=== PATIENT | female | born 1970 | race Caucasian/White ===

== ENCOUNTER 2016-05-15 15:45 | Inpatient (IN) | payer MEDICAID ==
[~2016-05-15] VITALS: Ht 167.6 cm; Wt 131.0 kg
[2016-05-15] MEDS ORDERED: DILAUDID 1 MG/ML AMP ONE (18:37)
[2016-05-15] MEDS ORDERED: CEFTRIAXONE 1 GM VIAL ONE (19:34)
[2016-05-15] MEDS ORDERED: Furosemide 40 MG/4 ML VIAL ONE (19:34)
[2016-05-15] MEDS ORDERED: SODIUM CHLORIDE 0.9% 100 ML IV ONE (19:34)
[2016-05-15] MEDS ORDERED: ALU/MAG/SIM 30 ML UDC PO PRN (20:40)
[2016-05-15] MEDS ORDERED: ONDANSETRON 4 MG VIAL IV PRN (20:40)
[2016-05-15] MEDS ORDERED: BISACODYL 10 MG SUPP RECTAL PRN (20:40)
[2016-05-15] MEDS: DUONEB INH SCH ×2 (20:40→23:00)
[2016-05-15] MEDS ORDERED: MAG HYDROX 30 ML UDC PO PRN (20:40)
[2016-05-15] MEDS ORDERED: GLUCAGON 1 MG VIAL IM PRN (20:40)
[2016-05-15] MEDS ORDERED: SALINE FLUSH 10 ML FLUSH PRN (20:40)
[2016-05-15] MEDS ORDERED: BISACODYL EC 5 MG TAB PO PRN (20:40)
[2016-05-15] MEDS ORDERED: GUAIFEN/DM 10 ML UDC PO PRN (20:40)
[2016-05-15] MEDS ORDERED: NICOTINE 21 MG/24 HR TRANSDERM PRN (20:40)
[2016-05-15] MEDS ORDERED: DEXTROSE 50% SYRINGE 50 ML IV PRN (20:40)
[2016-05-15] MEDS ORDERED: Atorvastatin 20 MG TAB PO SCH (21:00)
[2016-05-15 21:55] VITALS: BP_SYST 147; RESP 18; TEMP 99
[2016-05-15 22:17] VITALS: Ht 167.6 cm; Wt 131.0 kg
[2016-05-15] MEDS: ASPIRIN 81 MG CHEW TAB PO SCH (23:06)
[2016-05-15] MEDS: LEVOFLOXACIN 750 MG/150 ML 150 ML IV SCH (23:06)
[2016-05-15] MEDS: amLODIPine 10 MG TAB PO SCH (23:07)
[2016-05-15] MEDS: GABAPENTIN 600 MG TAB PO SCH (23:08)
[2016-05-15] MEDS: Atorvastatin 40 MG TAB PO SCH (23:08)
[2016-05-15] MEDS: FAMOTIDINE 20 MG TAB PO SCH (23:09)
[2016-05-15] MEDS: ENOXAPARIN 30 MG/0.3 ML SYR SUBQ SCH (23:09)
[2016-05-15] MEDS: SALINE FLUSH 10 ML FLUSH SCH (23:11)
[2016-05-15] MEDS: SODIUM CHLORIDE 0.9% FLUSH BAG 500 ML IV SCH (23:11)
[2016-05-15 23:36] VITALS: BP_SYST 176; RESP 18; TEMP 98.2
[2016-05-15] MEDS: LEVEMIR INSULIN SUBQ SCH (23:37)
[2016-05-16] MEDS: DUONEB INH SCH ×6 (02:10→22:26)
[2016-05-16 02:16] VITALS: RESP 18
[2016-05-16 04:00] VITALS: BP_SYST 117; RESP 17; TEMP 98.4
[2016-05-16] MEDS: ACETAMINOPHEN 325 MG TAB PO PRN (07:27)
[2016-05-16 07:48] VITALS: BP_SYST 127; RESP 18; TEMP 98
[2016-05-16] MEDS: ALPRAZOLAM 0.25 MG TAB PO SCH ×3 (08:00→15:52)
[2016-05-16] MEDS: LEVOFLOXACIN 750 MG/150 ML 150 ML IV SCH (08:24)
[2016-05-16] MEDS: ASPIRIN 81 MG CHEW TAB PO SCH (08:25)
[2016-05-16] MEDS: SALINE FLUSH 10 ML FLUSH SCH (08:25)
[2016-05-16] MEDS: ENOXAPARIN 30 MG/0.3 ML SYR SUBQ SCH (08:25)
[2016-05-16] MEDS: amLODIPine 10 MG TAB PO SCH (08:26)
[2016-05-16] MEDS: HCTZ 12.5 MG CAP PO SCH (08:26)
[2016-05-16] MEDS: SITAGLIPTIN 50 MG TAB PO SCH (08:26)
[2016-05-16] MEDS: FAMOTIDINE 20 MG TAB PO SCH ×2 (08:26→21:00)
[2016-05-16] MEDS: FERROUS SULF 325 MG TAB PO SCH (08:26)
[2016-05-16] MEDS ORDERED: MISSING DOSE XX ONE (08:35)
[2016-05-16] MEDS: GABAPENTIN 300 MG CAP PO SCH (09:43)
[2016-05-16 11:28] VITALS: BP_SYST 145; RESP 18; TEMP 97.8
[2016-05-16 15:48] VITALS: BP_SYST 130; RESP 19; TEMP 98.3
[2016-05-16] MEDS: GABAPENTIN 600 MG TAB PO SCH (17:00)
[2016-05-16 19:29] VITALS: BP_SYST 140; RESP 17; TEMP 98.4
[2016-05-17] MEDS: Atorvastatin 40 MG TAB PO SCH (00:43)
[2016-05-17] MEDS: SALINE FLUSH 10 ML FLUSH SCH ×2 (00:44→08:26)
[2016-05-17] MEDS: ACETAMINOPHEN 325 MG TAB PO PRN (00:44)
[2016-05-17 01:00] VITALS: BP_SYST 148; RESP 18; TEMP 98.3
[2016-05-17] MEDS: LEVEMIR INSULIN SUBQ SCH (01:17)
[2016-05-17] MEDS: DUONEB INH SCH ×3 (02:17→10:38)
[2016-05-17 03:23] VITALS: BP_SYST 131; RESP 20; TEMP 98.2
[2016-05-17] MEDS: SODIUM CHLORIDE 0.9% FLUSH BAG 500 ML IV SCH (05:24)
[2016-05-17 07:00] VITALS: BP_SYST 138; BP_SYST 140; RESP 16; RESP 20; TEMP 97.9; TEMP 98.2
[2016-05-17] MEDS ORDERED: MISSING DOSE XX ONE (08:00)
[2016-05-17] MEDS: ALPRAZOLAM 0.25 MG TAB PO SCH ×2 (08:00)
[2016-05-17] MEDS: GABAPENTIN 300 MG CAP PO SCH (08:23)
[2016-05-17] MEDS: SITAGLIPTIN 50 MG TAB PO SCH (08:23)
[2016-05-17] MEDS: ASPIRIN 81 MG CHEW TAB PO SCH (08:23)
[2016-05-17] MEDS: FERROUS SULF 325 MG TAB PO SCH (08:23)
[2016-05-17] MEDS: LEVOFLOXACIN 750 MG/150 ML 150 ML IV SCH (08:23)
[2016-05-17] MEDS: amLODIPine 10 MG TAB PO SCH (08:24)
[2016-05-17] MEDS: ENOXAPARIN 30 MG/0.3 ML SYR SUBQ SCH (08:24)
[2016-05-17] MEDS: HCTZ 12.5 MG CAP PO SCH (08:25)
[2016-05-17] MEDS: FAMOTIDINE 20 MG TAB PO SCH (08:25)
[2016-05-17 10:25] VITALS: BP_SYST 138; RESP 20; TEMP 97.9
== END 2016-05-17 12:09 | disposition home or self-care (01) | DRG 291 ==
LOC: ENRESERVTM → ENRESERVDT → ER 15:45 → ENPENDDIS 20:40 → EMR 20:40 → PCU 21:45
PROVIDERS: ADMIT Internal Medicine; ATTEND Internal Medicine
DX: I13.0 Hypertensive heart and chronic kidney disease with heart failure and stage 1 through stage 4 chronic kidney disease, or unspecified chronic kidney disease (principal); J18.9 Pneumonia, unspecified organism; E11.22 Type 2 diabetes mellitus with diabetic chronic kidney disease; I50.9 Heart failure, unspecified; E78.5 Hyperlipidemia, unspecified; K21.9 Gastro-esophageal reflux disease without esophagitis; Z89.419 Acquired absence of unspecified great toe; N18.9 Chronic kidney disease, unspecified; F17.210 Nicotine dependence, cigarettes, uncomplicated; Z79.82 Long term (current) use of aspirin; Z79.4 Long term (current) use of insulin
CPT/HCPCS: 36415; 36600; 71020; 80053; 81001; 82553; 82607; 82728; 82803; 82947; 83036; 83540; 83605; 83880; 84439; 84443; 84466; 84484; 85025; 85379; 85652; 86141; 87040; 87088; 87804; 93306; 93970; 94640; 94799; 96365; 96375; 99223; 99232; 99238